=== PATIENT | male | born 1940 | race African-American/Black ===

== ENCOUNTER 2016-11-15 16:10 | Inpatient (IN) | payer MEDICARE ==
[~2016-11-15] VITALS: Ht 170.2 cm; Wt 67.2 kg
[~2016-11-15 16:10] MED LIST: Z.0.NO CURRENT MEDS
[2016-11-15 16:19] VITALS: BP 137/77; PULSE 108; RESP 18; TEMP 97.8; O2SAT 90
--- NOTE | 2016-11-15 16:37 | PD ---
HPI Chief Complaint: weakness Time Seen by Provider: 16:19 Travel History International Travel<30 days: No Contact w/Intl Traveler<30days: No Traveled to known affect area: No History of Present Illness HPI This 76-year-old male presents with complaint of feeling weak and dizzy at home. He went to [facility] 3 days ago at that time he was having cough and chest pain. He was diagnosed with pneumonia. He says he has not had any chest pain since then. He was given prescription for Levaquin and released. He says that he is feeling very weak and is not able to stand up. His family says that he initially went to [facility]. When he was there his oxygen level was low and his heart rate was over 200. He was transferred by ambulance to [facility]. Patient says he has not had any chest pain since he left [facility]. FORMERLY [facility] Past Surgical History Eye Surgery: Yes (CORNEA TRANSPLANT ) Social History Alcohol Use: No Tobacco Use: No Substance Use: No Allergies-Medications (Allergen,Severity, Reaction): Coded Allergies: No Known Allergies (Verified , 03/27/07) Reported Meds & Prescriptions Reported Meds & Active Scripts Active Reported Lisinopril 10 Mg Tab 10 Mg PO DAILY Levaquin (Levofloxacin) 750 Mg Tab 750 Mg PO DAILY Review of Systems General / Constitutional: No: Fever, Chills Eyes: No: Diploplia, Blurred Vision HENT: No: Headaches Cardiovascular: No: Chest Pain or Discomfort Respiratory: Positive: Cough, Shortness of Breath Gastrointestinal: Positive: Constipation, Loss of Appetite, No: Vomiting Genitourinary: No: Urgency, Frequency Musculoskeletal: No: Myalgias Skin: No Rash Neurologic: Positive: Weakness, Dizziness, No: Syncope, Headache Endocrine: No: Heat Intolerance Hematologic/Lymphatic: No: Easy Bruising Physical Exam Narrative GENERAL: Thin male. His oxygen saturation on arrival is 90% on room air SKIN: Warm and dry. HEAD: Atraumatic. Normocephalic. EYES: Pupils equal and round. No scleral icterus. No injection or drainage. ENT: No nasal bleeding or discharge. Mucous membranes pink and moist. NECK: Trachea midline. No JVD. CARDIOVASCULAR: Regular rate and rhythm. No murmur appreciated. RESPIRATORY: No accessory muscle use. Clear to auscultation. Breath sounds equal bilaterally. GASTROINTESTINAL: Abdomen soft, non-tender, nondistended. Hepatic and splenic margins not palpable. On rectal exam there is brown stool which is guaiac positive MUSCULOSKELETAL: No obvious deformities. No clubbing. No cyanosis. No edema. NEUROLOGICAL: Awake and alert. No obvious cranial nerve deficits. Motor grossly within normal limits. Normal speech. PSYCHIATRIC: Appropriate mood and affect; insight and judgment normal. Data Data Last Documented VS Vital Signs Date Time Temp Pulse Resp B/P Pulse Ox O2 Delivery O2 Flow Rate FiO2 11/15/16 17:36 90 18 165/78 90 18 163/76 88 18 168/73 11/15/16 16:19 97.8 90 Orders Electrocardiogram (11/15/16 16:22) Complete Blood Count With Diff (11/15/16 16:22) Comprehensive Metabolic Panel (11/15/16 16:22) Troponin I (11/15/16 16:22) B-Type Natriuretic Peptide (11/15/16 16:22) Prothrombin Time / Inr (Pt) (11/15/16 16:22) Act Partial Throm Time (Ptt) (11/15/16 16:22) Blood Culture (11/15/16 16:22) Lipase (11/15/16 16:22) Urinalysis - C+S If Indicated (11/15/16 16:22) Magnesium (Mg) (11/15/16 16:22) Thyroid Stimulating Hormone (11/15/16 16:22) Influenzae A/B Antigen (11/15/16 16:22) Chest, Single Ap (11/15/16 16:22) Sodium Chlor 0.9% 1000 Ml Inj (Ns 1000 M (11/15/16 16:30) Lactic Acid Sepsis Protocol (11/15/16 16:22) Potassium Chloride (Kcl) (11/15/16 17:30) Admit Order (Ed Use Only) (11/15/16 17:45) Labs Laboratory Tests Test 11/15/16 11/15/16 16:29 17:24 White Blood Count 11.1 TH/MM3 Red Blood Count 4.70 MIL/MM3 Hemoglobin 12.8 GM/DL Hematocrit 40.7 % Mean Corpuscular Volume 86.6 FL Mean Corpuscular Hemoglobin 27.2 PG Mean Corpuscular Hemoglobin 31.4 % Concent Red Cell Distribution Width 12.9 % Platelet Count 478 TH/MM3 Mean Platelet Volume 8.4 FL Neutrophils (%) (Auto) 68.4 % Lymphocytes (%) (Auto) 19.9 % Monocytes (%) (Auto) 9.8 % Eosinophils (%) (Auto) 0.5 % Basophils (%) (Auto) 1.4 % Neutrophils # (Auto) 7.4 TH/MM3 Lymphocytes # (Auto) 2.2 TH/MM3 Monocytes # (Auto) 1.1 TH/MM3 Eosinophils # (Auto) 0.1 TH/MM3 Basophils # (Auto) 0.2 TH/MM3 CBC Comment DIFF FINAL Differential Comment Prothrombin Time 12.2 SEC Prothromb Time International 1.1 RATIO Ratio Activated Partial 32.4 SEC Thromboplast Time Sodium Level 139 MEQ/L Potassium Level 3.1 MEQ/L Chloride Level 100 MEQ/L Carbon Dioxide Level 30.1 MEQ/L Anion Gap 9 MEQ/L Blood Urea Nitrogen 14 MG/DL Creatinine 1.10 MG/DL Estimat Glomerular Filtration 79 ML/MIN Rate Random Glucose 119 MG/DL Calcium Level 8.6 MG/DL Magnesium Level 2.2 MG/DL Total Bilirubin 0.4 MG/DL Aspartate Amino Transf 15 U/L (AST/SGOT) Alanine Aminotransferase 10 U/L (ALT/SGPT) Alkaline Phosphatase 78 U/L Troponin I LESS THAN 0.02 NG/ML B-Type Natriuretic Peptide 51 PG/ML Total Protein 7.6 GM/DL Albumin 2.5 GM/DL Lipase 175 U/L Thyroid Stimulating Hormone 1.220 uIU/ML 3rd Gen Urine Collection Type CLEAN CATCH Urine Color MALIA Urine Turbidity SLIGHT Urine pH 5.5 Urine Specific [place] 1.023 Urine Protein TRACE mg/dL Urine Glucose (UA) NEG mg/dL Urine Ketones NEG mg/dL Urine Occult Blood NEG Urine Nitrite NEG Urine Bilirubin NEG Urine Leukocyte Esterase SMALL Urine RBC 0-3 /hpf Urine WBC 9-14 /hpf Urine Squamous Epithelial 0-5 /hpf Cells Urine Calcium Oxalate Crystals FEW /hpf Urine Hyaline Casts 3-5 /lpf Urine Mucus MOD /lpf Microscopic Urinalysis Comment CULTURE INDICATED Lactic Acid Level 1.7 mmol/L [facility] Medical Decision Making Medical Screen Exam Complete: Yes Emergency Medical Condition: Yes Medical Record Reviewed: Yes Interpretation(s) Laboratory Tests Test 11/15/16 16:29 White Blood Count 11.1 TH/MM3 Red Blood Count 4.70 MIL/MM3 Hemoglobin 12.8 GM/DL Hematocrit 40.7 % Mean Corpuscular Volume 86.6 FL Mean Corpuscular Hemoglobin 27.2 PG Mean Corpuscular Hemoglobin 31.4 % Concent Red Cell Distribution Width 12.9 % Platelet Count 478 TH/MM3 Mean Platelet Volume 8.4 FL Neutrophils (%) (Auto) 68.4 % Lymphocytes (%) (Auto) 19.9 % Monocytes (%) (Auto) 9.8 % Eosinophils (%) (Auto) 0.5 % Basophils (%) (Auto) 1.4 % Neutrophils # (Auto) 7.4 TH/MM3 Lymphocytes # (Auto) 2.2 TH/MM3 Monocytes # (Auto) 1.1 TH/MM3 Eosinophils # (Auto) 0.1 TH/MM3 Basophils # (Auto) 0.2 TH/MM3 CBC Comment DIFF FINAL Differential Comment Prothrombin Time 12.2 SEC Prothromb Time International 1.1 RATIO Ratio Activated Partial 32.4 SEC Thromboplast Time Sodium Level 139 MEQ/L Potassium Level 3.1 MEQ/L Chloride Level 100 MEQ/L Carbon Dioxide Level 30.1 MEQ/L Anion Gap 9 MEQ/L Blood Urea Nitrogen 14 MG/DL Creatinine 1.10 MG/DL Estimat Glomerular Filtration 79 ML/MIN Rate Random Glucose 119 MG/DL Calcium Level 8.6 MG/DL Magnesium Level 2.2 MG/DL Total Bilirubin 0.4 MG/DL Aspartate Amino Transf 15 U/L (AST/SGOT) Alanine Aminotransferase 10 U/L (ALT/SGPT) Alkaline Phosphatase 78 U/L Troponin I LESS THAN 0.02 NG/ML Total Protein 7.6 GM/DL Albumin 2.5 GM/DL Lipase 175 U/L Thyroid Stimulating Hormone 1.220 uIU/ML 3rd Gen Differential Diagnosis Differential includes pneumonia, [place], CHF Narrative Course X-ray shows a left-sided infiltrate. His white count of 11,000. Potassium is low at 3.1. EKG shows sinus tachycardia at a rate of 100. There are Q waves in the inferior leads. The computer reads it as possible ST elevation but is hard to define the J-point on the EKG. His troponin is normal. Patient has failed outpatient treatment of his pneumonia. Case discussed with Dr. collazo we will start him on cefepime and Zithromax Diagnosis Primary Impression: Pneumonia Qualified Code: J18.1 - Pneumonia of left lower lobe due to infectious organism Admitting Information Admitting Physician Requests: Admit Arnulfo Silva MD Nov 15, 2016 16:37
[2016-11-15 16:54] LABS: AUTOMATED NEUTROPHIL # 7.4 TH/MM3 (1.8-7.7); BASOPHIL # 0.2 TH/MM3 (0-0.2); BASOPHIL % 1.4 % (0.0-2.0); EOSINOPHIL # 0.1 TH/MM3 (0-0.4); EOSINOPHIL % 0.5 % (0.0-4.0); HEMATOCRIT 40.7 % (39.0-51.0); LYMPH % 19.9 % (9.0-44.0); LYMPHOCYTE # 2.2 TH/MM3 (1.0-4.8); MEAN CELL VOLUME 86.6 FL (80.0-100.0); MEAN CORPUSCULAR HEMOGLOBIN 27.2 PG (27.0-34.0); MEAN CORPUSCULAR HGB CONC 31.4 % (32.0-36.0); MONO % 9.8 % (0.0-8.0); NEUT % 68.4 % (16.0-70.0); PLATELET COUNT 478 TH/MM3 (150-450); RED CELL DISTRIBUTION WIDTH 12.9 % (11.6-17.2); WHITE BLOOD COUNT 11.1 TH/MM3 (4.0-11.0)
[2016-11-15 17:01] LABS: HEMO FLAGS DIFF FINAL
[2016-11-15 17:04] LABS: CHLORIDE 100 MEQ/L (98-107); POTASSIUM 3.1 MEQ/L (3.5-5.1); SODIUM (NA) 139 MEQ/L (136-145)
[2016-11-15 17:07] LABS: ANION GAP 9 MEQ/L (5-15); BICARBONATE 30.1 MEQ/L (21.0-32.0); BLOOD UREA NITROGEN 14 MG/DL (7-18); MAGNESIUM 2.2 MG/DL (1.5-2.5)
[2016-11-15 17:08] LABS: APTT (PATIENT) 32.4 SEC (24.3-30.1); INTERNATIONAL NORMALIZED RATIO 1.1 RATIO; PROTHROMBIN TIME - PATIENT 12.2 SEC (9.8-11.6)
[2016-11-15] MEDS ORDERED: LEVA750T PO (17:08)
[2016-11-15] MEDS ORDERED: LISI10TA3 PO (17:08)
[2016-11-15 17:10] LABS: ALT (GPT) 10 U/L (12-78); AST (GOT) 15 U/L (15-37); GLOMERULAR FILTRATION RATE 79 ML/MIN (>89)
[2016-11-15 17:12] LABS: TOTAL BILIRUBIN ADULT 0.4 MG/DL (0.2-1.0)
[2016-11-15] MEDS: SODIUM CHLOR 0.9% 1000 ML INJ 1,000 ML IV SCH (17:12)
--- NOTE | 2016-11-15 17:12 | RADHPO ---
EXAM DATE/TIME: 11/15/2016 16:44 [place] COMPARISON: No previous studies available for comparison. INDICATIONS : Cough with shortness of breath. MEDICAL HISTORY : None. SURGICAL HISTORY : None. ENCOUNTER: Initial ACUITY: 1 week PAIN SCORE: 6/10 LOCATION: Bilateral chest FINDINGS: 2 AP erect views of the chest were obtained and demonstrate coarse streaky opacity in the left perihi lar region and left lung base. There is mild streaky opacity at the right lung base as well. The hear t size is at the upper limits of normal. There is no perihilar edema. The bony thorax is intact and t here is no evidence of effusion. His present in the thoracic spine. CONCLUSION: 1. Mild course opacity left perihilar region left lung base which is into to the age but likely repre sents chronic scarring. Early pneumonia could have this appearance as well. 2. Apparent mild or scarring at the right lung base. Manuel Garcia MD on November 15, 2016 at 17:09 Board Certified Radiologist. This report was verified electronically.
[2016-11-15 17:13] LABS: ALKALINE PHOSPHATASE 78 U/L (45-117)
[2016-11-15] MEDS ORDERED: POTASSIUM CHLORIDE 20 MEQ CONTROLLED RELEASE TAB PO ONE (17:30)
[2016-11-15 17:34] LABS: BLOOD, URINE NEG (NEG); GLUCOSE,URINE NEG (NEG); KETONE, URINE NEG (NEG); NITRITE,URINE NEG (NEG); PH, URINE 5.5 (5.0-8.5)
[2016-11-15 17:36] VITALS: BP_SYST 163; BP_SYST 165; BP_SYST 168; BP_DIAS 73; BP_DIAS 76; BP_DIAS 78; RESP 18
[2016-11-15 17:55] LABS: METHOD OF COLLECTION CLEAN CATCH; URINE COLOR AMBER (YELLW/STRAW)
[2016-11-15 17:58] LABS: CALCIUM OXALATE CRYSTALS,URINE FEW /hpf; MUCUS URINE MOD /lpf (OCC); SQUAMOUS EPITHELIAL CELL URINE 0-5 /hpf (0-5)
[2016-11-15 18:00] LABS: RBC, URINE 0-3 /hpf (0-3)
[2016-11-15] MEDS ORDERED: SODIUM CHLORIDE 0.9% FLUSH 5 ML FLUSH IV FLUSH PRN (18:00)
[2016-11-15] MEDS ORDERED: guaiFENesin/DEXTROMETHORPHAN 200 MG/20 MG/10 ML CUP PO PRN (18:00)
[2016-11-15 18:01] LABS: COMMENT (UR) CULTURE INDICATED; CULTURE IF INDICATED CULTURE INDICATED
[2016-11-15] MEDS: CEFEPIME INJ 2,000 MG in SODIUM CHLORIDE 0.9% INJ 100 ML IV SCH (18:32)
[2016-11-15] MEDS ORDERED: CEFEPIME INJ 2,000 MG in SODIUM CHLORIDE 0.9% INJ 100 ML IV ONE (18:45)
[2016-11-15] MEDS ORDERED: AZITHROMYCIN INJ 500 MG in SODIUM CHLOR 0.9% 250 ML INJ 250 ML IV ONE (18:45)
[2016-11-15 19:26] VITALS: BP 163/77; PULSE 82; RESP 18; O2SAT 98
[2016-11-15] MEDS ORDERED: AZITHROMYCIN INJ 500 MG in SODIUM CHLOR 0.9% 250 ML INJ 250 ML IV SCH (20:00)
[2016-11-15] MEDS: HEPARIN SODIUM - SQ 10,000 UNITS/ML VIAL SQ SCH (20:49)
[2016-11-15] MEDS: SODIUM CHLORIDE 0.9% FLUSH 5 ML FLUSH IV FLUSH SCH (20:49)
[2016-11-15 22:00] VITALS: BP 168/94; PULSE 71; RESP 18; TEMP 97.3; O2SAT 99
[2016-11-16] VITALS (8 sets, daily range): BP systolic 142–171; BP diastolic 69–84; PULSE 57–70; RESP 16–18; TEMP 96.4–98.5; O2SAT 93–100
[2016-11-16] MEDS: ACETAMINOPHEN 325 MG TAB PO PRN (00:42)
[2016-11-16] MEDS: ENALAPRILAT 1.25 MG/ML VIAL IV PUSH PRN (00:43)
[2016-11-16] MEDS: CEFEPIME INJ 2,000 MG in SODIUM CHLORIDE 0.9% INJ 100 ML IV SCH ×2 (06:22→18:19)
[2016-11-16] MEDS: SODIUM CHLOR 0.9% 1000 ML INJ 1,000 ML IV SCH ×2 (06:22→12:30)
[2016-11-16 07:27] LABS: AUTOMATED NEUTROPHIL # 4.8 TH/MM3 (1.8-7.7); BASOPHIL % 0.1 % (0.0-2.0); EOSINOPHIL # 0.1 TH/MM3 (0-0.4); EOSINOPHIL % 1.6 % (0.0-4.0); HEMATOCRIT 33.4 % (39.0-51.0); HEMO FLAGS DIFF FINAL; LYMPH % 21.1 % (9.0-44.0); LYMPHOCYTE # 1.6 TH/MM3 (1.0-4.8); MEAN CELL VOLUME 87.2 FL (80.0-100.0); MEAN CORPUSCULAR HEMOGLOBIN 28.6 PG (27.0-34.0); MEAN CORPUSCULAR HGB CONC 32.8 % (32.0-36.0); MONO % 12.4 % (0.0-8.0); NEUT % 64.8 % (16.0-70.0); PLATELET COUNT 414 TH/MM3 (150-450); RED BLOOD COUNT 3.83 MIL/MM3 (4.50-5.90); RED CELL DISTRIBUTION WIDTH 13.2 % (11.6-17.2); WHITE BLOOD COUNT 7.4 TH/MM3 (4.0-11.0)
[2016-11-16 07:36] LABS: POTASSIUM 3.2 MEQ/L (3.5-5.1)
--- NOTE | 2016-11-16 08:01 | MH ---
cc: SAMUEL HILL MD DATE OF ADMISSION: 11/15/2016 CHIEF COMPLAINT Generalized weakness. HISTORY OF PRESENT ILLNESS This is a 76-year-old -[place] male with past medical history significant for left eye corneal transplant, who came to the ER at [facility] complaining of weakness and dizziness. He went to the [facility] three days ago and at that time he had coughing and chest pain and was diagnosed with pneumonia. He denies any chest pain since then and he was given a prescription of Levaquin and was released from the ER. He felt weak and tired. At the time of examination he denies any complaint. Other than that nothing significant. PAST MEDICAL/SURGICAL HISTORY As dictated above. SOCIAL HISTORY Denies smoking, drinking or taking drugs. He lives at home. FAMILY HISTORY Nothing significant. ALLERGIES No known drug allergies. MEDICATIONS 1. Lisinopril 10 mg p.o. daily. 2. Levaquin 750 mg p.o. daily. REVIEW OF SYSTEMS Positive for generalized weakness. All other review of systems is negative. PHYSICAL EXAMINATION GENERAL: This is a 76-year-old male lying on the bed, not in acute distress. VITAL SIGNS: Temperature 96.4, heart rate 69, respirations 16, blood pressure 149/72. O2 saturation 96% on room air. HEENT: Normocephalic, atraumatic. EOMI. PERRL. Oral mucosa moist. NECK: Supple. No visible thyromegaly or neck mass. Trachea is central. CARDIOVASCULAR: Regular rate and rhythm. LUNGS: Respirations clear to auscultation bilaterally. ABDOMEN: Soft, nontender. Bowel sounds audible. EXTREMITIES: No cyanosis or clubbing. Full range of motion of all extremities. NEUROLOGIC: Awake, alert, oriented x4. No focal deficits. SKIN: Warm and dry. PSYCHIATRIC: The patient is cooperative. Mood and affect are normal. LABORATORY CBC is unremarkable except for WBC count 11.1 high, hemoglobin 12.8 low, MCHC 31.4 low, platelet count 478 high. BMP is unremarkable except for potassium 3.1 low, GFR 79 low, glucose 119 high. LFTs are normal. Troponin-I less than 0.02. Albumin 2.5 low, total protein 7.6 normal. Lipase 175 normal. TSH 1.22 normal. PT 12.2, INR 1.1, APTT 32.4. Urine examination shows small leukocyte esterase, 9-14 wbc's, few calcium oxalate crystals, 3-5 hyaline casts. Blood cultures x2 are negative so far. Urine culture pending. Influenza A and B negative. IMAGING DATA Chest x-ray done showed mild coarse opacity left perihilar region left lung base which is into the but likely represents chronic scarring. Early pneumonia could have the appearance as well. Apparent mild scarring at the right lung base. ASSESSMENT AND PLAN 1. This is a 76-year-old -[place] male who came to the emergency room diagnosed with generalized weakness most likely secondary to pneumonia. The patient was started on Levaquin. 2. Hypokalemia. Will replace potassium and monitor potassium. 3. History of hypertension. Continue home medication. 4. DVT prophylaxis. Heparin 5000 units subcutaneous twice a day. 5. GI prophylaxis. Protonix 40 mg p.o. daily. 6. plus a DVT prophylaxis Heparin 5000 units subcutaneous twice a day. 7. The patient is also on cefepime one gram q.12h. 8. We are going to manage the patient on a daily basis and make recommendations on a daily basis. Samuel Hill MD EA/RUSTY /7:22 AM /7:36 AM
[2016-11-16 08:04] LABS: BICARBONATE 29.5 MEQ/L (21.0-32.0)
[2016-11-16] MEDS: SODIUM CHLORIDE 0.9% FLUSH 5 ML FLUSH IV FLUSH SCH ×2 (09:00→20:19)
[2016-11-16] MEDS ORDERED: INFLUENZA VIRUS VACCINE (QUADRIVALENT) 0.5 ML SYR IM ONE (09:00)
[2016-11-16] MEDS ORDERED: LEVOFLOXACIN 750 MG TAB PO SCH (09:00)
[2016-11-16] MEDS ORDERED: PNEUMOCOCCAL POLYVALENT INJ 25 MCG/0.5 ML SYR IM ONE (09:00)
[2016-11-16] MEDS: HEPARIN SODIUM - SQ 10,000 UNITS/ML VIAL SQ SCH ×2 (10:59→20:19)
[2016-11-16] MEDS: LISINOPRIL 10 MG TAB PO SCH (10:59)
[2016-11-16] MEDS: AZITHROMYCIN INJ 500 MG in SODIUM CHLOR 0.9% 250 ML INJ 250 ML IV SCH (20:16)
[2016-11-17] VITALS (8 sets, daily range): BP systolic 108–185; BP diastolic 64–91; PULSE 61–85; RESP 18–20; TEMP 97.2–99; O2SAT 91–98
[2016-11-17] MEDS: CEFEPIME INJ 2,000 MG in SODIUM CHLORIDE 0.9% INJ 100 ML IV SCH ×2 (06:32→17:16)
[2016-11-17] MEDS: SODIUM CHLOR 0.9% 1000 ML INJ 1,000 ML IV SCH ×3 (06:32→14:45)
[2016-11-17 06:54] LABS: AUTOMATED NEUTROPHIL # 4.1 TH/MM3 (1.8-7.7); BASOPHIL % 0.6 % (0.0-2.0); EOSINOPHIL # 0.2 TH/MM3 (0-0.4); EOSINOPHIL % 2.9 % (0.0-4.0); HEMATOCRIT 32.3 % (39.0-51.0); HEMO FLAGS DIFF FINAL; LYMPH % 23.7 % (9.0-44.0); LYMPHOCYTE # 1.6 TH/MM3 (1.0-4.8); MEAN CELL VOLUME 86.6 FL (80.0-100.0); MEAN CORPUSCULAR HEMOGLOBIN 27.6 PG (27.0-34.0); MEAN CORPUSCULAR HGB CONC 31.9 % (32.0-36.0); MONO % 13.4 % (0.0-8.0); NEUT % 59.4 % (16.0-70.0); PLATELET COUNT 420 TH/MM3 (150-450); RED BLOOD COUNT 3.73 MIL/MM3 (4.50-5.90); RED CELL DISTRIBUTION WIDTH 13.4 % (11.6-17.2); WHITE BLOOD COUNT 6.8 TH/MM3 (4.0-11.0)
[2016-11-17 07:21] LABS: POTASSIUM 3.2 MEQ/L (3.5-5.1)
[2016-11-17 08:30] LABS: BICARBONATE 26.4 MEQ/L (21.0-32.0); CALCIUM-PROTEIN CORRECTED 8.2 MG/DL (8.5-10.1); TOTAL BILIRUBIN ADULT 0.4 MG/DL (0.2-1.0)
--- NOTE | 2016-11-17 08:38 | EKG ---
Date Performed: 11/15/2016 Time Performed: 16:07:14 PTAGE: 76 years EKG: Sinus tachycardia. Left axis deviation Possible anterior infarct-age undetermined Possible inferior infarct - age undetermined Nonspecific ST wave change Abnormal ECG PREVIOUS TRACING : 03/27/2007 03.26 Since previous tracing, heart rate is faster, there is some loss of R force anteriorly. Previous tracing showed possible inferior infarct and possible anterior infarct. This tracing has more pronounced findings, but no specific evidence of acute ST elevation. C linical correlation about tracings recommended. DOCTOR: Timi Bhardwaj Interpretating Date/Time 11/17/2016 08:37:16
--- NOTE | 2016-11-17 08:46 | HHI.PR ---
Subjective History of Present Illness Patient feel better no acute issue d/w MONTEZ garcia bed side. Review of Systems Constitutional Constitutional: Fatigue, Weakness Pulmonary Respiratory: Coughing, Shortness of Breath Vitals/Results Intake & Output 11/16/16 11/16/16 11/17/16 15:00 23:00 07:00 Intake Total 922 ml Balance 922 ml IV Total 922 ml Vital Signs Vital Signs Date Time Temp Pulse Resp B/P Pulse Ox O2 Delivery O2 Flow Rate FiO2 11/17/16 04:00 98.1 64 20 119/64 94 11/17/16 00:00 98.5 65 18 122/68 94 11/16/16 20:55 93 21 11/16/16 20:00 98.5 70 18 142/69 94 11/16/16 16:00 97.1 57 18 155/77 96 11/16/16 12:00 97.6 65 18 142/79 98 CBC/BMP: 11/17/16 0630 11/17/16 0630 Lab Results Laboratory Tests Test 11/17/16 06:30 White Blood Count 6.8 TH/MM3 Red Blood Count 3.73 MIL/MM3 Hemoglobin 10.3 GM/DL Hematocrit 32.3 % Mean Corpuscular Volume 86.6 FL Mean Corpuscular Hemoglobin 27.6 PG Mean Corpuscular Hemoglobin 31.9 % Concent Red Cell Distribution Width 13.4 % Platelet Count 420 TH/MM3 Mean Platelet Volume 7.7 FL Neutrophils (%) (Auto) 59.4 % Lymphocytes (%) (Auto) 23.7 % Monocytes (%) (Auto) 13.4 % Eosinophils (%) (Auto) 2.9 % Basophils (%) (Auto) 0.6 % Neutrophils # (Auto) 4.1 TH/MM3 Lymphocytes # (Auto) 1.6 TH/MM3 Monocytes # (Auto) 0.9 TH/MM3 Eosinophils # (Auto) 0.2 TH/MM3 Basophils # (Auto) 0.0 TH/MM3 CBC Comment DIFF FINAL Differential Comment Sodium Level 145 MEQ/L Potassium Level 3.2 MEQ/L Chloride Level 109 MEQ/L Carbon Dioxide Level 26.4 MEQ/L Anion Gap 10 MEQ/L Blood Urea Nitrogen 12 MG/DL Creatinine 0.75 MG/DL Estimat Glomerular Filtration 123 ML/MIN Rate Random Glucose 88 MG/DL Calcium Level 7.3 MG/DL Protein Corrected Calcium 8.2 MG/DL Total Bilirubin 0.4 MG/DL Aspartate Amino Transf 13 U/L (AST/SGOT) Alanine Aminotransferase 8 U/L (ALT/SGPT) Alkaline Phosphatase 46 U/L Total Protein 5.4 GM/DL Albumin 1.9 GM/DL Physical Exam General General Appearance: No Acute Distress, Comfortable Eyes Eye Exam: Pupils Equal, Pupils Reactive Ears & Nose Ears & Nose Exam: Nasal Mucosa [place] Throat Throat Exam: Oral Mucosa [place] & Moist, Oral Pharynx Normal Neck Neck Exam: Neck Supple, Trachea Midline Pulmonary Resp Exam: Clear Bilaterally, No Distress, Diminished Breath Sounds Cardiology CV Exam: Regular, Normal Sinus Rhythm, Good Perfusion Gastrointestinal/Abdomen GI Exam: Soft, Non-Tender, Bowel Sounds Present Musculoskeletal MS Exam: Normal Tone Integumentary Skin Exam: Clear, Warm, Dry, Intact Extremeties Extremities Exam: No Edema Neurologic Neuro Exam: Alert, Awake, Oriented, Speech Clear, Moving All Extremities, No Focal Deficits PUD Prophylasis PUD Prophylaxis: Protonix Assessment/Plan Assessment/Plan ASSESSMENT AND PLAN 1. This is a 76-year-old -[place] male who came to the emergency room diagnosed with generalized weakness most likely secondary to pneumonia. The patient on Levaquin. 2. Hypokalemia. Will replace potassium and monitor potassium. 3. History of hypertension. Continue home medication. 4. DVT prophylaxis. Heparin 5000 units subcutaneous twice a day. 5. GI prophylaxis. Protonix 40 mg p.o. daily. 6. plus a DVT prophylaxis Heparin 5000 units subcutaneous twice a day. 7. The patient is also on cefepime one gram q.12h. 8. We are going to manage the patient on a daily basis and make recommendations on a daily basis. Discussed Condition with: Patient Samuel Schroeder MD Nov 17, 2016 08:46
[2016-11-17] MEDS: HEPARIN SODIUM - SQ 10,000 UNITS/ML VIAL SQ SCH ×2 (08:59→20:25)
[2016-11-17] MEDS: LISINOPRIL 10 MG TAB PO SCH (09:00)
[2016-11-17] MEDS: SODIUM CHLORIDE 0.9% FLUSH 5 ML FLUSH IV FLUSH SCH ×2 (09:00→20:14)
[2016-11-17] MEDS: RESP: ALBUTEROL 2.5 MG/IPRATROPIUM 0.5 MG NEB (PRN) INH ×2 (10:55→10:59)
[2016-11-17] MEDS ORDERED: POTASSIUM CHLORIDE 20 MEQ CONTROLLED RELEASE TAB PO ONE (11:00)
[2016-11-17] MEDS: AZITHROMYCIN INJ 500 MG in SODIUM CHLOR 0.9% 250 ML INJ 250 ML IV SCH (20:25)
[2016-11-17] MEDS: ENALAPRILAT 1.25 MG/ML VIAL IV PUSH PRN (21:14)
[2016-11-17] MEDS: ACETAMINOPHEN 325 MG TAB PO PRN (23:43)
[2016-11-18] MEDS: RESP: ALBUTEROL 2.5 MG/IPRATROPIUM 0.5 MG NEB (PRN) INH (00:09)
[2016-11-18 00:58] VITALS: BP 148/81; PULSE 72; RESP 16; TEMP 98; O2SAT 92
[2016-11-18] MEDS: SODIUM CHLOR 0.9% 1000 ML INJ 1,000 ML IV SCH (02:53)
[2016-11-18 04:00] VITALS: BP 143/78; PULSE 78; RESP 18; TEMP 98.3; O2SAT 95
[2016-11-18] MEDS: CEFEPIME INJ 2,000 MG in SODIUM CHLORIDE 0.9% INJ 100 ML IV SCH (05:38)
[2016-11-18 08:00] VITALS: BP 151/70; PULSE 68; RESP 17; TEMP 97; O2SAT 96
[2016-11-18 08:11] LABS: AUTOMATED NEUTROPHIL # 3.6 TH/MM3 (1.8-7.7); BASOPHIL # 0.1 TH/MM3 (0-0.2); BASOPHIL % 0.9 % (0.0-2.0); EOSINOPHIL # 0.2 TH/MM3 (0-0.4); HEMATOCRIT 34.4 % (39.0-51.0); HEMO FLAGS DIFF FINAL; LYMPH % 22.1 % (9.0-44.0); LYMPHOCYTE # 1.4 TH/MM3 (1.0-4.8); MEAN CELL VOLUME 86.7 FL (80.0-100.0); MEAN CORPUSCULAR HEMOGLOBIN 27.7 PG (27.0-34.0); MEAN CORPUSCULAR HGB CONC 31.9 % (32.0-36.0); MONO % 13.9 % (0.0-8.0); NEUT % 60.1 % (16.0-70.0); PLATELET COUNT 399 TH/MM3 (150-450); RED BLOOD COUNT 3.97 MIL/MM3 (4.50-5.90); RED CELL DISTRIBUTION WIDTH 13.4 % (11.6-17.2); WHITE BLOOD COUNT 6.1 TH/MM3 (4.0-11.0)
[2016-11-18 08:22] LABS: CHLORIDE 109 MEQ/L (98-107); POTASSIUM 3.5 MEQ/L (3.5-5.1); SODIUM (NA) 144 MEQ/L (136-145)
[2016-11-18 08:27] LABS: ANION GAP 8 MEQ/L (5-15); BICARBONATE 26.7 MEQ/L (21.0-32.0); BLOOD UREA NITROGEN 9 MG/DL (7-18)
[2016-11-18 08:30] LABS: ALT (GPT) 8 U/L (12-78); AST (GOT) 13 U/L (15-37)
[2016-11-18 08:31] LABS: GLOMERULAR FILTRATION RATE 125 ML/MIN (>89)
[2016-11-18 08:32] LABS: TOTAL BILIRUBIN ADULT 0.5 MG/DL (0.2-1.0)
[2016-11-18 08:34] LABS: ALKALINE PHOSPHATASE 51 U/L (45-117)
[2016-11-18] MEDS: SODIUM CHLORIDE 0.9% FLUSH 5 ML FLUSH IV FLUSH SCH (09:00)
--- NOTE | 2016-11-18 09:03 | HHI.PR ---
Subjective History of Present Illness Patient feel better no acute issue d/w MONTEZ Prater at bed side. no acute issue patient wants to go home ok to DC home today. Review of Systems Constitutional Constitutional: Fatigue Pulmonary Respiratory: Coughing Vitals/Results Intake & Output 11/17/16 11/17/16 11/18/16 15:00 23:00 07:00 Intake Total 2720 ml Output Total 225 ml Balance 2720 ml -225 ml Intake Oral 820 ml IV Total 1900 ml Output Urine Total 225 ml # Voids 4 2 # Bowel Movements 1 Vital Signs Vital Signs Date Time Temp Pulse Resp B/P Pulse Ox O2 Delivery O2 Flow Rate FiO2 11/18/16 08:00 97.0 68 17 151/70 96 11/18/16 04:00 98.3 78 18 143/78 95 11/18/16 00:58 98.0 72 16 148/81 92 11/18/16 00:53 20 11/17/16 20:35 94 21 11/17/16 20:00 99.0 74 18 185/91 94 11/17/16 16:00 97.8 85 18 108/78 94 11/17/16 12:00 97.4 61 19 138/73 98 11/17/16 10:55 91 21 CBC/BMP: 11/18/16 0745 11/18/16 0745 Lab Results Laboratory Tests Test 11/18/16 07:45 White Blood Count 6.1 TH/MM3 Red Blood Count 3.97 MIL/MM3 Hemoglobin 11.0 GM/DL Hematocrit 34.4 % Mean Corpuscular Volume 86.7 FL Mean Corpuscular Hemoglobin 27.7 PG Mean Corpuscular Hemoglobin 31.9 % Concent Red Cell Distribution Width 13.4 % Platelet Count 399 TH/MM3 Mean Platelet Volume 7.6 FL Neutrophils (%) (Auto) 60.1 % Lymphocytes (%) (Auto) 22.1 % Monocytes (%) (Auto) 13.9 % Eosinophils (%) (Auto) 3.0 % Basophils (%) (Auto) 0.9 % Neutrophils # (Auto) 3.6 TH/MM3 Lymphocytes # (Auto) 1.4 TH/MM3 Monocytes # (Auto) 0.8 TH/MM3 Eosinophils # (Auto) 0.2 TH/MM3 Basophils # (Auto) 0.1 TH/MM3 CBC Comment DIFF FINAL Differential Comment Sodium Level 144 MEQ/L Potassium Level 3.5 MEQ/L Chloride Level 109 MEQ/L Carbon Dioxide Level 26.7 MEQ/L Anion Gap 8 MEQ/L Blood Urea Nitrogen 9 MG/DL Creatinine 0.74 MG/DL Estimat Glomerular Filtration 125 ML/MIN Rate Random Glucose 89 MG/DL Calcium Level 7.6 MG/DL Total Bilirubin 0.5 MG/DL Aspartate Amino Transf 13 U/L (AST/SGOT) Alanine Aminotransferase 8 U/L (ALT/SGPT) Alkaline Phosphatase 51 U/L Total Protein 5.9 GM/DL Albumin 2.1 GM/DL Physical Exam General General Appearance: No Acute Distress, Comfortable Eyes Eye Exam: Pupils Equal, Pupils Reactive Ears & Nose Ears & Nose Exam: Nasal Mucosa [place] Throat Throat Exam: Oral Mucosa [place] & Moist, Oral Pharynx Normal Neck Neck Exam: Neck Supple, Trachea Midline Pulmonary Resp Exam: Clear Bilaterally, No Distress, Diminished Breath Sounds Cardiology CV Exam: Regular, Normal Sinus Rhythm, Good Perfusion Gastrointestinal/Abdomen GI Exam: Soft, Non-Tender, Bowel Sounds Present Musculoskeletal MS Exam: Normal Tone Integumentary Skin Exam: Clear, Warm, Dry, Intact Extremeties Extremities Exam: No Edema Neurologic Neuro Exam: Alert, Awake, Oriented, Speech Clear, Moving All Extremities, No Focal Deficits PUD Prophylasis PUD Prophylaxis: Protonix Assessment/Plan Assessment/Plan ASSESSMENT AND PLAN 1. This is a 76-year-old -[place] male who came to the emergency room diagnosed with generalized weakness most likely secondary to pneumonia. The patient on Levaquin. 2. Hypokalemia. Will replace potassium and monitor potassium. 3. History of hypertension. Continue home medication. 4. DVT prophylaxis. Heparin 5000 units subcutaneous twice a day. 5. GI prophylaxis. Protonix 40 mg p.o. daily. 6. plus a DVT prophylaxis Heparin 5000 units subcutaneous twice a day. 7. The patient is also on cefepime one gram q.12h. patient wants to go home ok to DC home today. f/u with PCP 1 Week. Discussed Condition with: Patient Samuel Schroeder MD Nov 18, 2016 09:03
[2016-11-18] MEDS ORDERED: CEFT500T3 PO (09:28)
[2016-11-18] MEDS ORDERED: ZITH500T PO (09:28)
[2016-11-18] MEDS: LISINOPRIL 10 MG TAB PO SCH (09:45)
[2016-11-18] MEDS: HEPARIN SODIUM - SQ 10,000 UNITS/ML VIAL SQ SCH (09:46)
--- NOTE | 2016-11-23 05:20 | MD ---
cc: SAMUEL HILL MD ADMISSION DATE: 11/15/2016 DISCHARGE DATE: 11/18/2016 DISPOSITION Okay to discharge patient. CONDITION AT THE TIME OF DISCHARGE Satisfactory. ACTIVITY As tolerated. DIET Cardiac diet. ALLERGIES No known drug allergies. DISCHARGE MEDICATIONS 1. Zithromax 500 mg p.o. daily for 7 days. 2. Ceftin 500 mg twice a day for 2 weeks. 3. Lisinopril 10 mg p.o. daily. FOLLOWUP The patient was to follow up with PCP. ADMISSION DIAGNOSIS Pneumonia. DISCHARGE DIAGNOSIS Pneumonia improved. OTHER COMORBIDITIES Hypertension. HOSPITAL COURSE This is 76-year male admitted with cough, congestion, diagnosed with pneumonia. The patient was given Rocephin and Zithromax during hospital the stay which improved the patient. The patient also had hypokalemia during the hospital stay which resolved. The patient was discharged in satisfactory condition. The patient advised to follow up with PCP in one week. Samuel Hill MD EA/GUNNAR /9:32 AM /5:15 AM
== END 2016-11-18 11:57 | disposition home or self-care (01) | DRG 195 ==
LOC: PHED 16:10 → PHEDA 17:46 → PH3A 19:10
PROVIDERS: ADMIT Specialist; ATTEND Specialist
DX: J18.9 Pneumonia, unspecified organism (principal); I10 Essential (primary) hypertension; E87.6 Hypokalemia; Z94.7 Corneal transplant status
CPT/HCPCS: 71010; 80048; 80053; 81001; 83605; 83690; 83735; 83880; 84443; 84484; 85025; 85610; 85730; 87040; 87086; 87804; 93005; 94640; 94664; 96360; J0456; J0692; J1644; J7030; J7050